=== PATIENT | male | born 1945 | race Caucasian/White ===

== ENCOUNTER 2019-12-11 08:38 | Outpatient (CLI) | payer MEDICARE, OTHER, SELFPAY ==
--- NOTE | 2019-12-22 02:51 | SLEEP_ITS ---
Split-Night Sleep Study DATE OF STUDY: 12/11/2019 ORDERING PHYSICIAN: Vance Yeung M.D. REASON FOR THE STUDY: Sleep apnea, unspecified. HISTORY: The patient is a 74-year-old man, 72 inches tall weighing 150 pounds with a body mass index of 20.3. 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 He awakens from sleep nightly due to shortness of breath. He does not have belching, coughing, snoring, or trouble sleeping with a cold. He constantly gasps for breath at night and has breathing problems witnessed by others. He rarely sweats excessively at night. He does not notices heart pounding or beating irregularly at night. He occasionally falls asleep during the day often involuntarily. He does not fall asleep while driving, during physical effort, does not have loss of muscle tone with strong emotion, daytime difficulty due to sleepiness or feel paralyzed on waking or falling asleep. He does not have vivid dreamlike scenes upon awakening or falling asleep. He is never afraid to go to sleep. He denies nightmares. He does not remember his dreams. He denies racing thoughts, sadness, depression or anxiety. He does not have muscular tension and does not notice parts of his body jerking. He does not kick at night. He does not have crawly achy feelings in his legs or leg pain at night. He denies morning jaw pain. He does complain of grinding his teeth at night and being bothered by pain during the day as well as pain at night. He wakes up feeling stiff in the morning with sore achy muscles. He has insomnia and headaches. He estimates only 3 hours of sleep at night. Some days he cannot sleep at all and at times has gone 3 days without sleeping. He wakes up at night, always feeling short of breath. He has difficulty sleeping. He does take naps. Sometimes, a nap is refreshing. He is always tired when he wakes in the morning. MEDICAL COMORBIDITIES: Oropharyngeal cancer, feeding tube since September, COPD, hypothyroidism. MEDICATIONS: 1. Levothyroxine 100 mcg daily. 2. Acetaminophen q.6 hours p.r.n. pain or fever. 3. Chemotherapy. 4. He had cisplatin and Keytruda. HABITS: Previously smoked tobacco 2 packs a day. Caffeine, 2 cups a day. No alcohol. DESCRIPTION OF THE STUDY: On the Heyworth Sleepiness Scale, his score is 12. This was conducted as a split-night study in the sleep lab using the [employer] multiple channel system including EOG, EEG, submental EMG, EKG, nasal and oral airflow using thermistors and nasal pressure sensors, chest and abdominal belts, body position data, and pulse oximetry. The study was scored using CMS guidelines. On the baseline portion, the recording time was 179.9 minutes. Sleep time was 134.5 minutes. Sleep efficiency was 74.7%. Sleep latency was 5.8 minutes. REM latency was 35 minutes, which is short. Consistent with excessive sleepiness. He had 15 awakenings and spent 39.6 minutes awake after sleep onset. Sleep architecture showed 39.6 minutes of wakefulness after sleep onset, 8.9% stage 1 sleep, 64.7% stage 2 sleep, 1.1% stage 3 sleep and 25.3% stage REM. The patient spent 4.5% of this portion supine. The remainder was non-supine. He had 1 consolidated REM episode. The apnea-hypopnea index was 19.2, obstructive index 5.4, and central index 10.7. There was no supine REM. The patient had 11 central apneas in supine non-REM for an index of 101.5. He had 2 obstructive apneas, 10 central apneas, 4 mixed apneas and 4 obstructive hypopneas in non-supine, non-REM for an index of 12.8 and 3 central apneas, 3 mixed apneas, 6 obstructive hypopneas in non-supine REM for an index of 21.2. The supine index was 101.5. Non-supine index was 15. Lowest desaturation was 85%. Mean saturation was 95%. The patient spent
== END 2019-12-11 08:39 | disposition home or self-care (01) ==
LOC: ANHCSM 08:40
PROVIDERS: PCP Family Medicine; Visit Provider Family Medicine
DX: G47.30 Sleep apnea, unspecified (principal); C10.9 Malignant neoplasm of oropharynx, unspecified
CPT/HCPCS: 95811